=== PATIENT | female | born 1990 | race Caucasian/White ===

== ENCOUNTER 2018-04-02 10:20 | Day surgery (SDC) | payer BC, OTHER ==
[~2018-04-02] VITALS: Ht 165.1 cm; Wt 63.5 kg
--- NOTE | ~2018-04-02 | OR ---
[facility] [address] [place], [place] [address] Draft DATE OF OPERATION: 04/02/2018 SURGEON: Nikolas Peterson MD PREOPERATIVE DIAGNOSES: Chronic frontal sinusitis, chronic ethmoiditis, chronic maxillary sinusitis, chronic sphenoiditis, deviated nasal septum recurring acute sinusitis. POSTOPERATIVE DIAGNOSES: Chronic frontal sinusitis, chronic ethmoiditis, chronic maxillary sinusitis, chronic sphenoiditis, deviated nasal septum recurring acute sinusitis. PROCEDURES: 1. Right endoscopic frontal sinusotomy, 45089. 2. Right total ethmoidectomy, 59896. 3. Nasal septoplasty, 72379. 4. Right endoscopic sphenoidotomy, 24510. 5. Right endoscopic maxillary antrostomy, 31431. INDICATIONS: This 27-year-old female who has had lifelong history of asthma, inhalant allergies. This has progressed to chronic sinusitis with recurring acute sinus infections, characterized by increased frontal headache, pain, maxillary pain, milo-orbital pain, sometimes pain to the back. The occiput was drainage, both anteriorly and posteriorly. The patient has had progressive nasal obstruction as well. CT scan demonstrated a picture of chronic sinusitis and acute maxillary sinus infection with blockage of that right maxillary sinus with a strongly deviated septum to the left side with nasal obstruction in the left side. Medical treatment has failed to relieve her symptoms. The surgical procedures would be an alternative to just living with it if the patient some relief. DESCRIPTION OF PROCEDURE: The patient was placed on supine position and had an orotracheal intubation, placed in the general anesthesia. The right side was approached first. It was injected with a few cubic centimeters of 1% lidocaine with 1:100,000 epinephrine in the middle turbinate and the uncinate process in the lateral wall. The anteroinferior portion of the middle turbinate was trimmed away to give adequate exposure to sinus contents and also to facilitate postoperative endoscopy. The uncinate process was then incised with sickle knife and it was removed with a Thru-Cut punch in the microdebrider. Maxillary ostium was widened and any contents were suctioned out of the maxillary sinus. An PATIENT NAME: TRESSA PAZ OPERATIVE REPORT DATE OF : [birth year] REPORT #: [id number] PHYSICIAN: NIKOLAS PETERSON MD PCP: CARLO STEPHENS REPORT IS CONFIDENTIAL AND NOT TO BE RELEASED WITHOUT AUTHORIZATION [facility] [address] [place], [place] [address] Draft ethmoidectomy was then done by first opening the bulla and going posteriorly going air cell by air cell. A transosteosphenoidotomy was performed taking down the rostrum as soon as the sealing of the sphenoid sinus was identified. A 70-degree scope finished the dissection and the ethmoids going anteriorly up into the frontal sinus. Kerrison forceps was used to remove the beak of the frontal sinus to open up this widely as possible. The sinuses were photographed preop, intraop, and postoperatively. A little bit of Gelfoam with mupirocin ointment was placed up into the ethmoid region just lateral to the middle turbinate to prevent that remnant from lateralizing or scarring and getting synechial bands between the lateral wall. The septum was then injected with few cubic centimeters of lidocaine and another 3 mL of 0.5% Marcaine with 1:100,000 epinephrine. The incision was made at the junction of floor on the left side lifting up the mucoperichondrium and mucoperiosteum. The junction was between bone and cartilage with a caudal D-knife elevating the mucoperiosteum with the dull end of the caudal dissection tool, then the was re-used to section that bone, which was essentially a bony deviation and the deviated shape of the bone. It was removed until the now membranous flaps of the septum could be based it down in the midline. A 4-0 gut was used to based it and 4-0 chromic was used to close the flap. More Marcaine was placed into the flaps with help of the postop pain. The estimated blood loss was 400 mL. The patient was awakened, extubated, and sent to recovery room in good condition. The patient will be followed in the clinic and kept on antibiotics through her recovery. Nikolas Peterson MD [facility] [address]/MODL /[id number] Copies: ~ PATIENT NAME: TRESSA PAZ OPERATIVE REPORT DATE OF : [birth year] REPORT #: [id number] PHYSICIAN: NIKOLAS PETERSON MD PCP: CARLO STEPHENS REPORT IS CONFIDENTIAL AND NOT TO BE RELEASED WITHOUT AUTHORIZATION
[~2018-04-02 10:20] MED LIST: CALCIUM500 MG PO; CLARITIN10 MG PO; DULCOLAX5 MG PO; FLONASE ALLERG9.9 ML NAS; IRON236 MG PO; MULTIVITAMINS1 EAC3 PO; NORCO 5-325 TA1 EACH PO; OMEPRAZOLE20 MG PO; PROBIOTIC1 EAC1 PO; TRAMADOL HCL50 MG PO; VITAMIN D5000 UNIT PO
[2018-04-02] MEDS ORDERED: VENTOLIN HFA18 GM INH (10:44)
--- NOTE | 2018-04-02 13:34 | NUR ---
04/02/18 1334 Nataly Del Valle 1330 PATIENT ARRIVES TO PACU UNRESPONSIVE TO PAIN OR VERBAL STIMULI. ORAL AIRWAY IN PLACE, REQUIRES RN TO HOLD JAW THRUST. MASK AT 10 LITERS ON ARRIVAL, DECREASED TO 6 LITERS.
--- NOTE | 2018-04-02 14:51 | NUR ---
1445: PT ARRIVES TO DS RM 5 FROM RECOVERY WITH EYES CLOSED. PT IS DROWSY BUT EASILY AROUSED TO VOICE COMMAND AND ANSWERS QUESTIONS APPROPRIATELY. PT DENIES NAUSEA OR PAIN ON ARRIVAL. SCD'S IN PLACE AND CALL LIGHT PLACED AT PT LEFT SIDE. PT PROVIDED ICED WATER. 1455: PT TOLERATES PO WELL, SIPPING WATER.
--- NOTE | 2018-04-02 15:09 | NUR ---
PT FAMILY IN ROOM AT BEDSIDE. PT PROVIDED MORE WATER. [facility] CALLED FOR 'TYLENOL 3 1 TO 2 TABLETS BY MOUTH EVERY 6 HOURS NEEDED FOR PAIN; 30 TABLETS).
--- NOTE | 2018-04-02 15:27 | NUR ---
PT PROVIDED PUDDING AND APPLESAUCE PER REQUEST AND MORE ICED WATER.
[2018-04-02] MEDS ORDERED: TYLENOL WITH C1 EACH PO (15:34)
--- NOTE | 2018-04-02 15:56 | NUR ---
PT UP TO BR WITH RN ASSIST. PT AMBULATES WELL BUT STATES "A LITTLE BIT OF DIZZINESS." PT ABLE TO VOID 750 MLS YELLOW URINE WITH NO PROBLEMS. PT ASKS FOR SOUP, PROVIDED CHICKEN NOODLE SOUP WITH CRACKERS AND ICED WATER. PT FAMILY AT BEDSIDE. SCD'S IN PLACE AND IV RUNNING CONTINUOUSLY.
--- NOTE | 2018-04-02 16:46 | NUR ---
DC CRITERIA MET. RN HELPS PT GET DRESSED TO REFRAIN FROM BENDING OVER. DC INSTRUCTIONS GIVEN IN PRESENCE OF PT AND FAMILY MEMBERS. ALL QUESTIONS ADDRESSED. PAIN MED SCRIPT PHONED TO [facility]. PT DC PER WC WITH S.O. DRIVING.
== END 2018-04-02 16:35 | disposition home or self-care (01) ==
LOC: OPS 10:20 → DS 10:20 → OPS 11:30 → DS 11:30 → OPS 16:35
PROVIDERS: Otolaryngology
PROC: 09SM4ZZ Reposition Nasal Septum, Percutaneous Endoscopic Approach (ICD-10-PCS; 2018-04-02)
PROC: 09TU8ZZ Resection of Right Ethmoid Sinus, Via Natural or Artificial Opening Endoscopic (ICD-10-PCS; principal; 2018-04-02 11:30)
PROC: 099Q8ZZ Drainage of Right Maxillary Sinus, Via Natural or Artificial Opening Endoscopic (ICD-10-PCS; 2018-04-02 11:30)
DX: J01.41 Acute recurrent pansinusitis (principal); J32.4 Chronic pansinusitis; J34.2 Deviated nasal septum; M54.5 Low back pain; G89.29 Other chronic pain; J45.909 Unspecified asthma, uncomplicated; Z98.890 Other specified postprocedural states; Z79.51 Long term (current) use of inhaled steroids; Z79.899 Other long term (current) drug therapy; Z98.1 Arthrodesis status
CPT/HCPCS: 00160; J0330; J1100; J1885; J2250; J2405; J2704; J2765; J3010; J7120

== ENCOUNTER 2018-04-07 17:25 | Emergency (ER) | payer BC, OTHER ==
[~2018-04-07] VITALS: Ht 165.1 cm; Wt 63.5 kg
[~2018-04-07 17:25] MED LIST changes: +TYLENOL WITH C1 EACH PO; +VENTOLIN HFA18 GM INH
[2018-04-07] MEDS ORDERED: LEVAQUIN500 MG PO (18:58)
[2018-04-07] MEDS ORDERED: ZOFRAN ODT4 MG PO (18:58)
[2018-04-07] MEDS ORDERED: NORCO 5-325 TA1 EACH PO (19:54)
== END 2018-04-07 20:08 | disposition home or self-care (01) ==
LOC: ED 17:25
DX: J32.9 Chronic sinusitis, unspecified (principal); J45.909 Unspecified asthma, uncomplicated; Z88.0 Allergy status to penicillin; Z88.8 Allergy status to other drugs, medicaments and biological substances; Z79.899 Other long term (current) drug therapy
CPT/HCPCS: 70450; 70486; 80053; 84703; 85025; 96361; 96374; 96375; 99284; J0696; J2405; J7030

== ENCOUNTER 2018-10-24 13:51 | Emergency (ER) | payer BC, OTHER ==
[~2018-10-24] VITALS: Ht 165.1 cm; Wt 68.0 kg
[~2018-10-24 13:51] MED LIST changes: +LEVAQUIN500 MG PO; +ZOFRAN ODT4 MG PO
[2018-10-24] MEDS ORDERED: ZYRTEC10 M3 PO (14:10)
== END 2018-10-24 14:19 | disposition home or self-care (01) ==
LOC: ED 13:51
DX: H57.13 Ocular pain, bilateral (principal)

== ENCOUNTER 2022-08-04 18:49 | Emergency (ER) | payer OTHER ==
[~2022-08-04] VITALS: Ht 165.1 cm; Wt 68.0 kg
[~2022-08-04 18:49] MED LIST changes: +ZYRTEC10 M3 PO
[2022-08-04] MEDS ORDERED: CYCLOBENZAPRINE10 MG PO (20:15)
== END 2022-08-04 20:50 | disposition home or self-care (01) ==
LOC: ED 18:49
DX: U07.1 COVID-19 (principal); R07.89 Other chest pain; J45.909 Unspecified asthma, uncomplicated; D64.9 Anemia, unspecified; Z88.0 Allergy status to penicillin; Z88.8 Allergy status to other drugs, medicaments and biological substances; Z79.899 Other long term (current) drug therapy
CPT/HCPCS: 71045; 94640; 94664; 99284-25

== ENCOUNTER 2025-05-02 05:59 | Day surgery (SDC) | payer OTHER ==
[~2025-05-02] VITALS: Ht 165.1 cm; Wt 82.0 kg
[~2025-05-02 05:59] MED LIST changes: +AZO D-MANNOSE500 MG PO; +BUPROPION XL150 MG PO; +CRANBERRY500 M3 PO; +CYCLOBENZAPRINE10 MG PO; +FLUVOXAMINE MA100 MG PO; +HYDROCODON-ACE1 EA10 PO; +LACTATED RINGER'S 1,000 ML IV SCH; +METAMUCIL660 GM PO
[2025-05-02 06:09] VITALS: BP 150/86
[2025-05-02] MEDS ORDERED: BUPROPION HCL75 MG PO (06:12)
[2025-05-02] MEDS ORDERED: SODIUM CHLORIDE 0.9% 40 ML IV ONE (06:49)
[2025-05-02] MEDS ORDERED: IBLOOD GLUCOSE TEST STRIP 1 EA TEST VI PRN (07:00)
[2025-05-02] MEDS ORDERED: LIDOCAINE HCL 1% 5 ML SDV INJ ONE (07:00)
[2025-05-02] MEDS ORDERED: HEParin SOD (PORCINE) 5,000 UNIT/ML SDV SUB-Q SCH (07:00)
[2025-05-02] MEDS ORDERED: CEFAZOLIN SODIUM 2 GM/20 ML SYR IV SCH (07:00)
[2025-05-02] MEDS ORDERED: KETOROLAC TROMETHAMINE 30 MG/ML VIAL ONE (07:25)
[2025-05-02] MEDS ORDERED: ROCURONIUM BROMIDE 50 MG/5 ML SYR ONE (07:25)
[2025-05-02] MEDS ORDERED: SUGAMMADEX SODIUM 200 MG/2 ML ML ONE (07:25)
[2025-05-02] MEDS ORDERED: DEXAMETHASONE SOD PHOS 4 MG/ML VIAL ONE (07:25)
[2025-05-02] MEDS ORDERED: LIDOCAINE HCL 2% 5 ML SDV ONE (07:25)
--- NOTE | 2025-05-02 07:37 | NUR ---
PT NOT AVAILABLE FOR VISIT. PROVIDED PRAYER.
[2025-05-02] MEDS ORDERED: KETAMINE in NS 50 MG/5 ML SYR ONE (07:51)
--- NOTE | 2025-05-02 09:12 | NUR ---
05/02/25 0912 Chanel,Emilia 0903 PT ARRIVED TO PACU ON 8L VIA MASK, ORAL AIRWAY IN PLACE. RESP EVEN AND UNLABORED.
[2025-05-02] MEDS ORDERED: ACETAMINOPHEN500 MG PO (09:26)
[2025-05-02] MEDS ORDERED: IBUPROFEN600 MG PO (09:26)
[2025-05-02] MEDS ORDERED: OXYCODON-ACETA1 EAC2 PO (09:26)
[2025-05-02] MEDS ORDERED: IBUPROFEN 600 MG TAB PO PRN (09:30)
[2025-05-02] MEDS ORDERED: OXYCODONE/APAP 7.5/325 TAB PO PRN (09:30)
[2025-05-02] MEDS ORDERED: LACTATED RINGER'S 1,000 ML IV SCH (09:30)
[2025-05-02] MEDS ORDERED: ACETAMINOPHEN 500 MG TAB PO PRN (09:30)
[2025-05-02 09:46] VITALS: BP 129/69
--- NOTE | 2025-05-02 09:57 | NUR ---
0945-PT BACK TO ROOM FROM PACU ON . RECEIVED REPORT FROM MAI FERNANDO. PT IS DRWOSY. RESP EVEN AND UNLABORED. RATES PAIN 1/10. DENIES NAUSEA. PT DECLINES WATER AND SNACK AT THIS TIME. NO OTHER NEEDS AT THIS TIME. CALL LIGHT WITHN REACH.
[2025-05-02 10:43] VITALS: BP 120/63
--- NOTE | 2025-05-02 11:56 | OR ---
[facility] [address] [place], [place] [address] Signed DATE OF OPERATION: 05/02/2025 SURGEON: Marcy Staton MD PREOPERATIVE DIAGNOSIS: Chronic calculous cholecystitis. POSTOPERATIVE DIAGNOSIS: Chronic calculous cholecystitis. PROCEDURES: 1. Laparoscopic cholecystectomy with intraoperative cholangiogram. 2. Surgeon-directed fluoroscopy. ANESTHESIA: General endotracheal; Sandie Lantigua CRNA, and local 0.25% Marcaine with epinephrine 10 mL. INDICATION: This 34-year-old woman is a patient of MOISES Vidal at [facility]. The patient has had episodes of severe right subcostal and epigastric pain. Evaluation includes gallbladder ultrasound showing gallstones. She has chronic calculous cholecystitis with typical biliary symptoms. She has been offered cholecystectomy for relief of her symptoms. She understands the risk of bleeding, infection, bile duct injury, need for open operation, and other unforeseen complications. She understands and she wished to proceed. FINDINGS: The gallbladder was chronically inflamed. The liver was reasonably normal. The gallbladder once excised had innumerable yellow multifaceted gallstones filling the entire gallbladder cavity. The cholangiogram was normal, though the more proximal biliary tree was obscured by Vigil rods, which had been placed many years ago. DESCRIPTION OF PROCEDURE: The patient was brought to the operating room, given a general endotracheal anesthetic. Preoperative antibiotic Ancef was given. Sequential compression device stockings used and heparin subcutaneously administered. The abdomen was prepared with chlorhexidine solution and draped sterilely. An infraumbilical incision was made and using an open Ness cannula technique, pneumoperitoneum was achieved to a level of 14 mmHg of carbon Electronically Signed By: MARCY STATON MD 05/02/25 1156 PATIENT NAME: TRESSA PAZ OPERATIVE REPORT DATE OF : [birth year] REPORT #: [id number] PHYSICIAN: MARCY STATON MD PCP: LISA WATERS [facility]- REPORT IS CONFIDENTIAL AND NOT TO BE RELEASED WITHOUT AUTHORIZATION [facility] [address] [place], [place] [address] Signed dioxide gas. Intra-abdominal inspection showed no sign of ascites or carcinomatosis. The gallbladder was initially obscured from view. Three additional trocars were placed in usual configuration in the subxiphoid, right midclavicular, and right anterior axillary line. The gallbladder was grasped and elevated cephalad, showing chronic inflammatory change and thickening of the peritoneum over the gallbladder. With lateral retraction on the gallbladder, blunt electrocautery dissection was undertaken identifying well dominant cystic artery and the cystic duct itself. The critical view of safety was maintained. The artery was divided with sharp dissection revealing even better the gallbladder cystic duct junction. A clip was applied across gallbladder cystic duct junction and a transverse choledochotomy made in the cystic duct. Egress of clear bile was noted. Using the Mancia type cholangiocatheter, intraoperative cholangiography was undertaken with surgeon-directed fluoroscopy. Free flow of contrast was noted in the biliary tree with prompt emptying into the duodenum. Some retrograde flow into the common hepatic duct was noted, but arborization to the more proximal biliary radicles was not visualized due to Vigil rods, which obscured the view. Change of angles of the fluoroscope did not seem to improve this unfortunately. The catheter was removed. The cystic duct was triply clipped and divided and then dissected free in a retrograde fashion using electrocautery. Gallbladder was placed in an endobag and extracted through the infraumbilical port site. The gallbladder was opened on the back table and found to have innumerable yellow multifaceted gallstones completely packing the gallbladder itself. The mucosa showed no sign of neoplasm. Irrigation was undertaken in subhepatic space. There was no sign of bile leak, bleeding, or other problems. The trocars were removed under direct visualization showing no sign of bleeding. The infraumbilical fascial incision was reapproximated with interrupted 0 Vicryl suture after removal of the trocars. The skin incisions were irrigated and injected with 0.25% Marcaine with epinephrine. The skin was closed with interrupted 3-0 Vicryl. Steri-Strips were applied. She was extubated in the operating room, transferred to the recovery room in good condition having suffered no complications. Sponge, needle, and instrument counts were reported as correct x3. MD LUCIA Gutiérrez/MODL /[id number] Electronically Signed By: MARCY STATON MD 05/02/25 1156 PATIENT NAME: TRESSA PAZ OPERATIVE REPORT DATE OF : [birth year] REPORT #: [id number] PHYSICIAN: MARCY STATON MD PCP: LISA WATERS [facility] REPORT IS CONFIDENTIAL AND NOT TO BE RELEASED WITHOUT AUTHORIZATION [address] [address] Signed cc: Lisa Waters [facility] Copies: ~ Electronically Signed By: MARCY STATON MD 05/02/25 1156 PATIENT NAME: TRESSA PAZE MALA OPERATIVE REPORT DATE OF : [birth year] REPORT #: [id number] PHYSICIAN: MARCY STATON MD PCP: LISA WATERS [facility] REPORT IS CONFIDENTIAL AND NOT TO BE RELEASED WITHOUT AUTHORIZATION
[2025-05-02] MEDS ORDERED: SEVOFLURANE 250 ML BTL INH ONE (14:12)
--- NOTE | 2025-05-02 15:48 | NUR ---
LE 1043-PT LAYING IN BED WITH EYES CLOSED. RESP EVEN AND UNLABORED. RATES PAIN 3/10. DENIES NAUSEA. PT WOULD LIKE PUDDING. PT TAKING SIPS OF WATER. PT WOULD ALSO LIKE PAIN MEDICATION. CALL LIGHT WITHIN REACH. LE 1048-PAIN MEDICATION GIVEN PER EMAR. LE 1053-PT SITTING BEDSIDE. PT AMBULATES TO RESTROOM. GAIT STEADY AND TOLERATED WELL. PT ABLE TO VOID. LE 1056-PT BACK TO ROOM. PT READY TO GO HOME. WILL GET DRESSED. CALL LIGHT WITHIN REACH.
--- NOTE | 2025-05-02 15:51 | NUR ---
JADA 1100-WENT OVER DISCHARGE INSTRUCTIONS WITH PT. WENT OVER POST OP MEDICATIONS. PT DECLINES PAIN PRESCRIPTION. STATES SHE HAS A PAIN CONTRACT AND HAS TALKED WITH THAT DR OLSEN PAIN MEDICATIONS. JADA 1108-PT AMBULATES TO WHEELCHAIR AND RIDE [facility].
--- NOTE | 2025-05-04 12:35 | PATH ---
[facility] [address] [place], [place] [address] Signed SPECIMEN(S): A GALLBLADDER AND GALLSTONES SPECIMEN SOURCE: A. GALLBLADDER AND GALLSTONES CLINICAL HISTORY: Chronic calculus cholecystitis FINAL PATHOLOGIC DIAGNOSIS: Gallbladder and gallstones: - Chronic cholecystitis - Cholelithiasis BB MICROSCOPIC EXAMINATION: Histologic sections of all submitted blocks are examined by light microscopy. These findings, together with the gross examination, support the pathologic diagnosis. Histologic sections of all submitted blocks are examined by light microscopy. These findings, together with the gross examination, support the pathologic diagnosis. GROSS DESCRIPTION: The specimen, labeled and designated "Dez, gallbladder and gallstones," is received in formalin and consists of Specimen: Previously opened gallbladder. Dimensions: 7.8 x 3.0 x 1.4 cm. Serosa: Green-granda and smooth. Cystic Duct: Obstructed by calculi, margin inked black and shaved. Calculi: Multiple yellow-granda multifaceted and fragmented calculi (0.1-0.8 cm in greatest dimension, and 6.0 x 6.0 x 1.0 cm in aggregate). Mucosa: Green-garnda and velvety. Wall thickness: 0.2-0.5 cm. Lymph node: No pericystic lymph nodes are grossly identified. Additional: None. [employer] Developer sections are submitted in (A1). VB (under the direct supervision of a pathologist) The Gross Description was prepared using a voice recognition system. The report was reviewed for accuracy; however, sound-alike word errors, addition and/or deletions may occur. If there is any question about this report, please contact Client Services. PATIENT NAME: TRESSA PAZ PATHOLOGY DATE OF : [birth year] REPORT #: [id number] PHYSICIAN: AUREA FONTANA PCP: LISA SAUDNERS [facility]- REPORT IS CONFIDENTIAL AND NOT TO BE RELEASED WITHOUT AUTHORIZATION [facility] [address], [place] [address] Signed ADDITIONAL NOTES: Immunohistochemical and/or in situ hybridization studies if performed in this case included appropriate positive controls that reacted as expected. This test was developed and its performance characteristics determined by [facility]. It has not been cleared or approved by the U.S. Food and Drug Administration. The FDA has determined that such clearance or approval is not necessary. This test is used for clinical purposes. It should not be regarded as investigational or for research. [facility] is certified under the Clinical Laboratory Improvement Amendments of 1988 (CLIA) as qualified to perform high complexity clinical laboratory testing. PERFORMING LABORATORY: Technical component was performed by [facility], [address] [place] [id number] (CLIA# [id number]). Professional interpretation was performed by [facility] [address] [address] (CLIA#: [id number]). Diagnostician: Bebo Dave MD Pathologist Electronically Signed 05/04/2025 Copies: ~ PATIENT NAME: TRESSA PAZ PATHOLOGY DATE OF : [birth year] REPORT #: [id number] PHYSICIAN: AUREA FONTANA PCP: LISA SAUNDERS [facility] REPORT IS CONFIDENTIAL AND NOT TO BE RELEASED WITHOUT AUTHORIZATION
== END 2025-05-02 11:08 | disposition home or self-care (01) ==
LOC: DS 05:59
PROVIDERS: ATTEND Surgery
PROC: BF532Z0 Other Imaging of Gallbladder and Bile Ducts using Fluorescing Agent, Intraoperative (ICD-10-PCS; 2025-05-02)
PROC: 0FT44ZZ Resection of Gallbladder, Percutaneous Endoscopic Approach (ICD-10-PCS; principal; 2025-05-02 07:30)
DX: K80.12 Calculus of gallbladder with acute and chronic cholecystitis without obstruction (principal); J45.909 Unspecified asthma, uncomplicated; F33.9 Major depressive disorder, recurrent, unspecified; Z79.899 Other long term (current) drug therapy; Z90.710 Acquired absence of both cervix and uterus; Z98.890 Other specified postprocedural states; Z88.1 Allergy status to other antibiotic agents; Z88.8 Allergy status to other drugs, medicaments and biological substances
CPT/HCPCS: 00813; 74300; J0690; J1100; J1644; J1885; J2003; J2405; J2704; J3490; J7121; Q9967